=== PATIENT | female | born 1985 | race Caucasian/White ===

== ENCOUNTER 2016-12-24 07:08 | Emergency (ER) | payer OTHER ==
--- NOTE | ~2016-12-24 | CR72 ---
[facility] A Service of [facility] & [facility] / [facility] RADIOLOGY TEXT RESULTS PATIENT: WES LOVE LOCATION: [facility] : 81 UNIT #: [id number] AGE: [address]: Nicol Ball SEX: F ORDER DR: [id number] [facility] [address] [place], [place] [address] [id number] MR#: [id number] Acc #: [id number] NAME: WES LOVE : 1985 SEX: F STUDY DATE/TIME: 12/24/2016 8:23 UNIT: [facility] ROOM: STUDY DESCRIPTION: CR Chest Single View Portable Attending Physician: Nicol Ball Pa-C Ordering Physician: Kimi Pardo M.D. Primary Care Physician: Primary Care Physician No MEDICAL IMAGING REPORT This report is preliminary unless electronic signature is present EXAM Portable chest 12/24 INDICATIONS Chest pain that started today. History of asthma. FINDINGS AP portable chest compared with 03/11/2012. Cardiac and mediastinal contours are normal. There is some linear scarring or atelectasis at the left base. Lungs otherwise are clear. There is no pneumothorax. IMPRESSION Minimal linear scarring or atelectasis at the left base, otherwise negative. Dictated by... Demetrius Ayala Jr., M.D. THIS IS AN ELECTRONICALLY VERIFIED REPORT Demetrius Ayala Jr., M.D. at 12/24/2016 12:40 PM CHRIS/claude TD: 12/24/2016 10:24 JOB #: [id number] MEDICAL IMAGING REPORT Page 1 of 1 COPY
--- NOTE | ~2016-12-24 | EKG ---
PATIENT: WES LOVE UNIT #: [id number] Ventricular Rate: 95 BPM Atrial Rate: 95 BPM P-R Interval: 144 ms QRS Duration: 82 ms Q-T Interval: 332 ms QTC Calculation(Bezet): 417 ms P [place]: 66 degrees Calculated R [place]: 70 degrees Calculated T [place]: 42 degrees Diagnosis Line: Normal sinus rhythm with sinus arrhythmia Diagnosis Line: Normal ECG Diagnosis Line: When compared with ECG of 11-MAR-2012 14:57, Diagnosis Line: No significant change was found Diagnosis Line: Confirmed by THAIS DIAZ MD ([id number]) on Diagnosis Line: 12/24/2016 10:43:55 PM INTERPRETING MD: CHINYERE
[~2016-12-24 07:08] MED LIST: ACYCLOVIR PO; ALBUTEROL17 G1 INH; ALBUTEROL17 GM INH; ALPRAZOLAM PO; AMOXICILLIN PO; AMOXICILLIN500 M1; AMOXICILLIN875 MG PO; ANXIETY MED; BENADRYL IV; BIRTH CONTROL PILLS; FLEXERIL10 MG; KEFLEX500 MG PO; MOTRIN400 MG; NO MEDICATIONS; PREDNISONE PO; PREDNISONE10 MG PO; XANAX1 MG; ZITHROMAX500 MG PO
[2016-12-24 08:02] LABS: BASOPHIL% 0.7 % (0-2.5); EOSINOPHIL# 0.2 X10e3 (0-0.7); EOSINOPHIL% 4.5 % (0.0-7.0); HEMATOCRIT 42.9 % (35.0-45.0); HEMOGLOBIN 14.5 gm/dL (12.0-16.0); LYMPHOCYTE# 1.5 X10e3 (1.0-3.5); LYMPHOCYTE% 27.3 % (17.0-45.0); MEAN CELL VOLUME 88.3 FL (83-96); MEAN CORPUSCULAR HEMOGLOBIN 29.9 PG (28-34); MEAN CORPUSCULAR HGB CONC 33.9 g/dL (30-36); MEAN PLATELET VOLUME 7.5 FL (6.5-11.5); MONOCYTE# 0.5 X10e3 (0-1.0); MONOCYTE% 9.3 % (3.0-12.0); NEUTROPHIL# 3.2 X10e3 (1.5-7.1); NEUTROPHIL% 58.2 % (40-75); PLATELET COUNT 245 X10e3 (140-420); RED BLOOD COUNT 4.86 X10e (3.90-5.30); RED CELL DISTRIBUTION WIDTH 13.8 % (11.0-15.5); WHITE BLOOD COUNT 5.5 X10e3 (4.0-10.5)
[2016-12-24 08:07] LABS: DIFF IND NO
[2016-12-24 08:22] LABS: PARTIAL THROMBOPLASTIN TIME 24.5 SECONDS (23.5-31.3); PROTHROMBIN TIME (PATIENT) 10.6 SECONDS (9.6-11.5)
[2016-12-24 08:32] LABS: ALBUMIN SERUM 3.8 g/dL (3.5-5.0); BILIRUBIN, DIRECT 0.1 mg/dL (0.0-0.2); BILIRUBIN,TOTAL 1.1 mg/dL (0.2-2.0); BUN/CREATININE RATIO 13.75; CALCIUM SERUM 8.9 mg/dL (8.4-10.2); CREATININE SERUM 0.8 mg/dL (0.6-1.4); POTASSIUM 3.5 mmol/L (3.5-5.1); PROTEIN TOTAL SERUM 7.3 g/dL (6.0-8.3)
[2016-12-24 09:27] LABS: POC - CKMB <1.0 ng/mL (0.0-7.9); POC - TROPONIN <0.05 ng/mL (<=0.05)
== END 2016-12-24 10:15 | disposition home or self-care (01) ==
LOC: CED 07:08
PROVIDERS: Emergency Medicine; Physician Assistant
DX: R07.89 Other chest pain (principal); G43.909 Migraine, unspecified, not intractable, without status migrainosus; F41.9 Anxiety disorder, unspecified; J45.909 Unspecified asthma, uncomplicated; F17.210 Nicotine dependence, cigarettes, uncomplicated; Z88.5 Allergy status to narcotic agent; Z88.1 Allergy status to other antibiotic agents; Z88.2 Allergy status to sulfonamides; Z88.8 Allergy status to other drugs, medicaments and biological substances; Z91.040 Latex allergy status
CPT/HCPCS: 36415; 71010; 80048; 80076; 82553; 83880; 84484; 85025; 85610; 85730; 93005; 99284